=== PATIENT | female | born 1975 | race Hispanic/Latino ===

== ENCOUNTER 2017-01-29 09:21 | Day surgery (SDC) ==
[2017-01-29] MEDS ORDERED: NS 500 ML ONE (10:54)
[2017-01-29] MEDS ORDERED: PEPCID ONE ×2 (10:55→11:01)
[2017-01-29] MEDS ORDERED: INJECTAFER 750 MG in NS 250 ML IV ONE (11:00)
[2017-01-29 13:38] VITALS: BP 111/70
== END 2017-01-29 12:16 | disposition home or self-care (01) ==
LOC: INF 09:21
PROVIDERS: ATTEND Internal Medicine Hematology & Oncology
DX: D50.9 Iron deficiency anemia, unspecified (principal); E11.9 Type 2 diabetes mellitus without complications; N92.0 Excessive and frequent menstruation with regular cycle; F50.89 Other specified eating disorder; E03.9 Hypothyroidism, unspecified; Z79.899 Other long term (current) drug therapy; Z79.84 Long term (current) use of oral hypoglycemic drugs
CPT/HCPCS: 96360; 96375; J1439; J7040; J7050; S0028

== ENCOUNTER 2020-01-02 15:25 | Inpatient (IN) ==
--- NOTE | 2020-01-02 15:53 | PROVIDER DOCUMENTATION ---
HPI-Abdominal Pain/GI Problem - General Chief Complaint: GI Bleed Stated Complaint: DR BARRIGA REFERRED Time Seen by Provider: 01/02/20 15:52 Source: patient Allergies/Adverse Reactions: Patient Allergies Allergy/AdvReac Type Severity Reaction Status Date / Time ferric carboxymaltose Allergy Severe ANAPHYLAXIS Verified 02/20/19 11:56 [From Injectafer] influenza virus vaccine, Allergy Unknown Verified 02/20/19 11:56 specific [Influenza Virus Vacc,Specific] Influenza Virus Vaccines Allergy Unknown Verified 02/20/19 11:56 Home Medications: Home Medication List Medication Instructions Recorded Confirmed Last Taken Type Levothyroxine [Synthroid] 75 microgm PO DAILY 02/05/17 01/07/18 08/12/18 History Metformin [Glucophage] 850 mg PO DAILY 02/05/17 01/07/18 08/12/18 History Past History - Adult - PAST MEDICAL HISTORY-ADULT Major Childhood Illnesses: reports: denies history Endocrine/Immune: reports: anemia - PRIOR SURGERIES/PROCEDURES Surgical/Procedure History: reports: none - IMMUNIZATION STATUS Childhood Immunizations: See Nurse Assessment Flu Vaccine: See Nurse Assessment Progress - PLAN OF CARE/RESULTS Progress/Plan/Lab Results: Vital Signs - 8 hr 01/02/20 15:42 Temperature 98.1 F Pulse Rate 80 Respiratory Rate 16 Blood Pressure 104/53 O2 Sat by Pulse Oximetry 100 Departure - Departure Referrals and Follow-Ups: Peggy Barriga CRNP [Primary Care Provider] -
--- NOTE | 2020-01-02 16:28 | PROVIDER DOCUMENTATION ---
HPI-General Adult - General Chief Complaint: GI Bleed Stated Complaint: DR BARRIGA REFERRED Time Seen by Provider: 01/02/20 15:52 Source: patient Allergies/Adverse Reactions: Patient Allergies Allergy/AdvReac Type Severity Reaction Status Date / Time ferric carboxymaltose Allergy Severe ANAPHYLAXIS Verified 02/20/19 11:56 [From Injectafer] influenza virus vaccine, Allergy Unknown Verified 02/20/19 11:56 specific [Influenza Virus Vacc,Specific] Influenza Virus Vaccines Allergy Unknown Verified 02/20/19 11:56 Home Medications: Home Medication List Medication Instructions Recorded Confirmed Last Taken Type Levothyroxine [Synthroid] 75 microgm PO DAILY 02/05/17 01/07/18 08/12/18 History Metformin [Glucophage] 850 mg PO DAILY 02/05/17 01/07/18 08/12/18 History - History of Present Illness -Gen Adult Nature of Presenting Problems: 44 yr old F, presenting from her PCPs office with abnormal lab results. The pt had labs drawn in response to several days hx of general aches, dizziness, chest pain; her H/H were noted to be 6.9 and 20.6 at the PCPs office yesterday, so she was asked to to come to the ED. The pt also reports headache, some shortness of breath; which has all been ongoing for a little longer. She denies blood in the stools, and denies abnormally heavy periods. Review of Systems - Adult - REVIEW OF SYSTEMS - ADULT Constitutional: reports: see HPIalejandro Eyes: reports: no symptoms reported Ears, Nose, Mouth & Throat: reports: no symptoms reported Cardiovascular: reports: no symptoms reported Respiratory: reports: see HPI Gastrointestinal: reports: no symptoms reported Genitourinary: reports: no symptoms reported Musculoskeletal: reports: no symptoms reported Integumentary: reports: no symptoms reported Neurological: reports: see HPI Psychiatric: reports: no symptoms reported Past History - Adult - PAST MEDICAL HISTORY-ADULT Review of Records: reports: Nursing Assessment Review Major Childhood Illnesses: reports: denies history Endocrine/Immune: reports: anemia - PRIOR SURGERIES/PROCEDURES Surgical/Procedure History: reports: none - IMMUNIZATION STATUS Childhood Immunizations: See Nurse Assessment Flu Vaccine: See Nurse Assessment - SOCIAL HISTORY Living Situation: family Physical Exam-General - PHYSICAL EXAM-ADULT Initial Vital Signs Reviewed: Yes - CONSTITUTIONAL General Appearance: alert, no apparent distress, other (appears a little tired) - EYES Eyes: PERRL/EOMI - HEAD, EARS, NOSE, MOUTH & THROAT HENMT: moist mucous membranes - RESPIRATORY Respiratory: chest non-tender, lungs clear, normal breath sounds - CARDIOVASCULAR Cardiovascular: regular rate, rhythm - MUSCULOSKELETAL Extremity: normal capillary refill - SKIN Integumentary: warm/dry - PSYCHIATRIC Psych/Mental Status: normal mood/affect, oriented x 3 Progress - PLAN OF CARE/RESULTS Progress/Plan/Lab Results: Vital Signs - 8 hr 01/02/20 15:42 Temperature 98.1 F Pulse Rate 80 Respiratory Rate 16 Blood Pressure 104/53 O2 Sat by Pulse Oximetry 100 Orders Category Date Time Status CBC WITH ELECTRONIC DIFF [HEME] Stat Lab 01/02/20 15:53 Uncollected COMPREHENSIVE METABOLIC PANEL [CHEM] Stat Lab 01/02/20 15:53 Uncollected OCCULT BLOOD SCREENING [STOOL] Stat Lab 01/02/20 15:53 Uncollected Pt's H/H is 6.9/25.6 - spoke with hospitalist for admission for transfusion. Result Diagrams: 01/02/20 16:25 01/02/20 16:25 - CONSULTS/PCP/HOSPITALIST Notification #1 *Consult/PCP/Hospitalist*: Dr. Quezada Time Discussed: 17:25 Consult Disposition: Admit Departure - Departure Date of Disposition Decision: 01/02/20 Time of Disposition Decision: 17:34 DIAGNOSIS: Anemia Qualifiers: Anemia type: iron deficiency Iron deficiency anemia type: unspecified iron deficiency Qualified Code(s): D50.9 - Iron deficiency anemia, unspecified Disposition: ADMITTED INPATIENT 09 Certified Medical Emergency: Emergent Condition: Stable Referrals and Follow-Ups: Peggy Barriga CRNP [Primary Care Provider] - - Critical Care Note This patient required my direct & personal management of CC.: No Attestation - Physician/ VAZQUEZ Attestation Patient care was provided by Advanced Practice Provider:: No The physician spent face to face time with patient:: Yes Advanced Practice Provider documentation review:: Supervising physician onsite and consulted in the evaluation and care of this patient. The physician did have a face to face encounter with the patient.
--- NOTE | 2020-01-02 16:51 | Diag Imaging Result Doc PS360 ---
EXAM: CHEST-2 VIEWS 01/02/2020 HISTORY: short of breath TECHNIQUE: PA and lateral chest COMMENT: There is no evidence of acute cardiac or pulmonary disease. Compared to 12/29/2017 there has been no significant change. IMPRESSION: No evidence of acute disease. Electronically signed by Eber French 01/02/2020 4:48 PM
[2020-01-02 17:13] LABS: BASO# 0.03 X1000 (0.0-0.2); BASO% 0.5 % (0.0-0.8); EOS# 0.31 X1000 (0.0-0.7); EOS% 5.3 % (0.0-10.0); HEMATOCRIT 25.3 % (37.0-47.0); HEMOGLOBIN 6.9 g/dL (12.0-16.0); LYMPH# 1.98 X1000 (1.2-3.4); LYMPH% 33.9 % (20.5-51.1); MCH 16.1 PG (27-31); MCHC 27.3 g/dL (33-37); MCV 59.1 FL (81-99); MONO# 0.36 X1000 (0.11-0.59); MONO% 6.2 % (1.7-9.3); MPV 10.7 FL (7.4-10.4); NEUT# 3.16 X1000 (1.4-6.5); NEUT% 54.1 % (42.2-75.2); PLT 367 X1000 (130-400); RBC 4.28 XMIL (4.2-5.4); RDW 21.2 % (11.5-14.5); WBC 5.84 X1000 (4.8-10.8)
[2020-01-02 17:14] LABS: URINE SOURCE CLEAN CATCH
[2020-01-02 17:17] LABS: BILIRUBIN URINE NEGATIVE (NEGATIVE); BLOOD URINE NEGATIVE (NEGATIVE); COLOR YELLOW; GLUCOSE URINE NEGATIVE (NEGATIVE); KETONE URINE NEGATIVE (NEGATIVE); LEUKOCYTES URINE NEGATIVE (NEGATIVE); NITRITE URINE NEGATIVE (NEGATIVE); PH URINE 6.5; PROTEIN URINE NEGATIVE (NEGATIVE); SP GRAVITY URINE 1.019; TURBIDITY URINE CLEAR (CLEAR); UR EPITHELIAL CELLS <10 /HPF (<10); URINE BACTERIA NEGATIVE /HPF; URINE RBC <10 /HPF (<10); URINE WBC <10 /HPF (<10); UROBILINOGEN URINE NORMAL (NORMAL)
[2020-01-02 17:48] LABS: UR AMPHETAMINES QUAL NONE DETECTED (NONE DETECT); UR BARBITUATES QUAL NONE DETECTED (NONE DETECT); UR BENZODIAZEPIN QUAL NONE DETECTED (NONE DETECT); UR CANNABINOIDS QUAL NONE DETECTED (NONE DETECT); UR COCAINE QUAL NONE DETECTED (NONE DETECT); UR METHADONE QUAL NONE DETECTED (NONE DETECT); UR OPIATES QUAL NONE DETECTED (NONE DETECT); UR OXYCODONE QUAL NONE DETECTED (NONE DETECT); UR PCP QUAL NONE DETECTED (NONE DETECT)
[2020-01-02 17:49] LABS: AGAP 12; ALB/GLOB RATIO 1.1; ALBUMIN 3.9 g/dL (3.5-5.0); ALKALINE PHOSPHATASE 72 U/L (32-104); BUN 18 mg/dL (8-22); CALCIUM 8.8 mg/dL (8.8-10.2); CHLORIDE 104 mmol/L (98-107); COSMO 280; CREATININE 0.7 mg/dL (0.5-0.9); ESTIMATED GFR > 60; GLUCOSE 115 mg/dL (70-104); GOT 35 U/L (10-30); GPT 15 U/L (10-36); POTASSIUM 4.3 mmol/L (3.5-5.1); SODIUM 139 mmol/L (136-145); TCO2 23 mmol/L (25-35); TOTAL BILIRUBIN < 0.15 mg/dL (0.20-1.00); TOTAL IRON 11 ug/dL (49-151); TOTAL PROTEIN 7.6 g/dL (6.3-8.3)
[2020-01-02] MEDS ORDERED: ZOFRAN IV PRN (17:55)
[2020-01-02 18:48] LABS: RETIC% 1.36 % (0.8-2.1); RETIC-HE 13.9 PG (28.2-36.6)
[2020-01-02 18:55] LABS: IRON SATURATION 3 %; TIBC 475 ug/dL; TOTAL IRON 12 ug/dL (49-151); UNBOUND IRON 463 ug/dL (112-346)
--- NOTE | 2020-01-02 20:36 | HISTORY AND PHYSICAL ---
PRIMARY CARE PHYSICIAN: Ms. Peggy Barriga. PRESENTING COMPLAINT: Abnormal labs. However, the patient also complained of exertional dyspnea, fatigue and eating a lot of ice. HISTORY OF PRESENT ILLNESS: Ms. Patel is a 44-year-old female with a past medical history of borderline diabetes and also hypothyroidism. She went to her primary care provider about 4 days ago because of generalized weakness and fatigue. The patient was evaluated. Labs were done. She was called to be notified that her blood count was very low and needed to come to the emergency room. Ms Patel also refers that she has been having a lot of desire to eat ice and dirt, which has been going on for over a month now. Upon presenting to the emergency room, she was evaluated including laboratory data, which revealed that her hemoglobin is 6.9 with MCV of 59.1. PAST MEDICAL HISTORY: 1. The patient is diabetic. 2. Hypothyroidism. MEDICATIONS AT HOME: 1. Metformin 850 p.o. daily. 2. Levothyroxine 75 mcg p.o. daily. PAST SURGICAL HISTORY: deliveries. FAMILY HISTORY: Positive for mother diabetic. SOCIAL HISTORY: The patient has 4 kids, all live with her. Not . She said it is complicated. Denies any tobacco use. No alcohol use. No recreational drug use. 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 REVIEW OF SYSTEMS: A 14 point review of system unremarkable except what we have in the HPI. Of note, Ms. Patel also complains of dyspnea, but no chest pains. PHYSICAL EXAMINATION: VITAL SIGNS: Blood pressure is 104/53, pulse of 80, respirations 16, temperature 98.1 degrees. GENERAL: Ms. Patel is a 44-year-old female. She is in bed. She is not in any cardiopulmonary distress. ENT: Mucosa is slightly pale. Anicteric. Acyanotic. NECK: Neck is supple. HEAD: Is normocephalic and atraumatic. RESPIRATORY SYSTEM: There is good air entry bilaterally. No crepitations. No rhonchi. No accessory muscle use. CARDIOVASCULAR: Regular rate and rhythm. No murmurs, no rubs, no gallops. [place] beat is at 5th intercostal space, midclavicular line. GI: Abdomen is soft, nontender. Bowel sounds present. There is no hepatosplenomegaly. EXTREMITIES: No pedal edema. Distal pulses present. LYMPHOPROLIFERATIVE: No lymph nodes palpated. The patient's mucosa is slightly pale. PRESSURE VESSEL INSPECTOR: The patient is awake, alert, oriented x4. Executive functions intact. Cranial nerves 2-12 have been grossly examined and unremarkable. Patient's motor is 5/5 in all extremities. Sensation is intact. Reflexes are normal in all extremities. PSYCH: The patient is very cooperative and has good judgment. LABORATORY DATA: Hemoglobin is 6.9. MCV is 59.1. Chemistry is also reviewed and unremarkable. ASSESSMENT: 1. Symptomatic anemia with hemoglobin 6.9. We are going to group and crossmatch and transfuse Ms. Patel 2 units of packed red blood cells. We will also get a fecal occult blood testing. Ms. Patel denies any excessive flow of her menses, so we suspect it is either chronic gastrointestinal blood loss or nutritional deficiencies. We will also get iron studies. 2. History of diabetes mellitus. The patient refers that she has been told she has borderline, but she is on metformin. We will get A1c. 3. Hypothyroidism. We will start her back on her levothyroxine. We will also check on a TSH. cc: Lamine Quezada MD
[2020-01-02] MEDS ORDERED: NS 500 ML IV SCH (22:30)
[2020-01-02] MEDS: TYLENOL PO PRN (22:52)
[2020-01-03 05:49] LABS: BASO# 0.03 X1000 (0.0-0.2); BASO% 0.6 % (0.0-0.8); EOS# 0.19 X1000 (0.0-0.7); EOS% 3.5 % (0.0-10.0); HEMATOCRIT 31.6 % (37.0-47.0); HEMOGLOBIN 9.4 g/dL (12.0-16.0); LYMPH% 33.5 % (20.5-51.1); MCH 19.1 PG (27-31); MCHC 29.7 g/dL (33-37); MCV 64.4 FL (81-99); MONO% 7.4 % (1.7-9.3); MPV 10.4 FL (7.4-10.4); NEUT# 2.96 X1000 (1.4-6.5); PLT 318 X1000 (130-400); RBC 4.91 XMIL (4.2-5.4); RDW 25.1 % (11.5-14.5); WBC 5.38 X1000 (4.8-10.8)
[2020-01-03 06:18] LABS: AGAP 10; ALB/GLOB RATIO 1.2; ALBUMIN 3.7 g/dL (3.5-5.0); ALKALINE PHOSPHATASE 64 U/L (32-104); BUN 14 mg/dL (8-22); CALCIUM 8.6 mg/dL (8.8-10.2); CHLORIDE 107 mmol/L (98-107); COSMO 284; CREATININE 0.6 mg/dL (0.5-0.9); ESTIMATED GFR > 60; GLUCOSE 101 mg/dL (70-104); GOT 15 U/L (10-30); GPT 12 U/L (10-36); MAGNESIUM 2.3 mg/dL (1.5-2.7); POTASSIUM 4.4 mmol/L (3.5-5.1); SODIUM 142 mmol/L (136-145); TCO2 25 mmol/L (25-35); TOTAL BILIRUBIN 0.29 mg/dL (0.20-1.00); TOTAL PROTEIN 6.7 g/dL (6.3-8.3)
[2020-01-03] MEDS ORDERED: SYNTHROID PO SCH (07:00)
[2020-01-03 07:40] LABS: EOS 3 % (1-10); LYMPHS 30 % (21-51); MONO 6 % (1-9); SEGS 61 % (42-75)
[2020-01-03] MEDS: TYLENOL PO PRN (08:33)
[2020-01-03 16:23] VITALS: BP 112/60
--- NOTE | 2020-01-04 09:23 | DISCHARGE SUMMARY ---
ADMISSION DATE: 01/02/2020 DISCHARGE DATE: 01/03/2020 DISPOSITION: Home. FOLLOWUP: 1. Ms. Peggy Barriga. 2. Dr. Goode. 3. Dr. Longo. CONSULTATION DURING THIS ADMISSION: None. IMAGING STUDIES OF SIGNIFICANCE: A chest x-ray showed no evidence of acute disease. ADMISSION DIAGNOSES: 1. Symptomatic anemia with hemoglobin 6.9. 2. History of diabetes mellitus. 3. Hypothyroidism. DIAGNOSES AT THE TIME OF DISCHARGE: 1. Symptomatic anemia with presenting hemoglobin of 6.9. Patient was transfused 2 packed red blood cells. Hemoglobin improved to 9.4. Patient occult testing was negative. 2. Severe microcytic anemia secondary to iron deficiency. The patient's ferritin was 4 with a percent saturation of 3. She was transfused 2 packed red blood cells. She has been given a prescription for iron supplement, and she has been advised to follow up with both Gastrointestinal and Hematology/Oncology for further outpatient evaluation. 3. Hypothyroidism. 4. Borderline diabetes mellitus, controlled on metformin. 5. Situational depression. The patient is on sertraline. DISCHARGE MEDICATIONS: 1. Bridget-Colace 1 tablet b.i.d. 2. Metformin 850 p.o. daily. 3. Levothyroxine 50 mcg p.o. daily. 4. Iron sulfate 325 p.o. b.i.d. 5. Sertraline 25 mg p.o. daily. PRESENTING COMPLAINT: Generalized weakness, fatigue, abnormal labs. HISTORY OF PRESENTING COMPLAINT: Ms. Patel is a 44-year-old female with a history of borderline diabetes, hypothyroid, who has been feeling generalized weakness and fatigue associated with eating a lot of ice and desired to be eating dirt, went to her primary provider who did some labs and found out that she was remarkably anemic, was sent to the ER for evaluation. Patient was admitted for further medical care. HOSPITAL COURSE: Ms Patel was transfused 2 PRBCs. Hemoglobin and hematocrit improved to 9.4. Her Hemoccult was negative. She was not showing any signs of obvious GI bleed. She felt well and strong enough. We think she is fairly stable to be discharged after her hemoglobin has normalized. During the workup it came up that it was found out that Ms. Patel is remarkably iron deficient. She said she has been taking iron at home, so unsure if she has a genu GI pathology that is not making her absorb iron or she has chronic GI bleed that is not apparent and has not been positive on the testing. We have, therefore, advised that Ms. Patel follows up with Dr. Longo for further GI workup. We have also advised that Ms. Patel follows up with Dr. Goode to repeat her CBC and follow up accordingly on the iron deficiency anemia. I understand Ms. 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 However, she tells me that her period is usually 4 days and very minimal bleeding. We have, however, advised that she follows up with her PCP, her primary care provider, so that she can be referred to see an BEHAVIORAL HEALTH RN. All the discharge instructions have been discussed with Ms. Patel. The son was also at the bedside at the time of the encounter. Both of them voiced understanding. TIME SPENT FOR DISCHARGE: 35 minutes. cc: Lamine Quezada MD
== END 2020-01-03 17:51 | disposition home or self-care (01) | DRG 812 ==
LOC: ED 15:25 → EDIPHOLD 19:11 → 1N 21:44
PROVIDERS: ADMIT Internal Medicine